=== PATIENT | male | born 1985 | race Caucasian/White ===

== ENCOUNTER → 2016-11-06 | Outpatient (CLI) | payer BC ==
--- NOTE | 2016-11-06 17:49 | DIAGNOSTIC IMAGING REPORT ---
L-SPINE FLEX/EXT BENDING MIN 6 CLINICAL HISTORY: M54.17 Lumbar back pain with radiculopathy affecting right lower COMPARISON STUDY: None FINDINGS: Normal study. No evidence for subluxation with patient in flexion or extension IMPRESSION: Normal study including flexion and extension views Electronically signed by: Jorge Marino M.D. 11/06/2016 5:47 PM Dictated Date/Time: 11/06/2016 5:45 PM
== END | disposition home or self-care (01) ==
LOC: C.RAD 17:13
PROVIDERS: ATTEND Internal Medicine
DX: M54.17 Radiculopathy, lumbosacral region (principal)

== ENCOUNTER → 2016-12-11 | Outpatient (CLI) | payer BC ==
[~2016-12-11] MED LIST: GADAVIST IV PRN
--- NOTE | 2016-12-11 11:02 | DIAGNOSTIC IMAGING REPORT ---
MRI LUMBAR SPINE COMBINATION CLINICAL HISTORY: Back pain with bilateral leg radiculopathy. TECHNIQUE: Sagittal and axial T1, T2 and STIR images were obtained. Imaging was performed before and after the administration of 8 cc of intravenous Gadavist COMPARISON STUDY: No previous studies for comparison. OBSERVATIONS: The vertebral bodies and posterior elements appear intact. There is no abnormal bony signal present to suggest a marrow replacement process. L1-2: No disc protrusions or extrusions. No evidence of spinal canal or neural foraminal compromise. L2-3: No disc protrusions or extrusions. No evidence of spinal canal or neural foraminal compromise. L3-4: No disc protrusions or extrusions. No evidence of spinal canal or neural foraminal compromise. L4-5: No disc protrusions or extrusions. No evidence of spinal canal or neural foraminal compromise. L5-S1: No disc protrusions or extrusions. No evidence of spinal canal or neural foraminal compromise. There is a intradural intramedullary mass involving the conus. There is a 12 mm intensely enhancing nodule at the superior L3 level. Immediately superior to this is either an associated syrinx or cystic component of the tumor which measures 40 x 13 x 12 mm. The findings are viewed as suspicious for an ependymoma. Other lesions to consider within the differential diagnosis include a hemangioblastoma and astrocytoma. IMPRESSION: Enhancing intradural mass, at the superior L3 level measuring 12 mm. This has an associated syrinx/cystic component measuring 40 x 13 x 12 mm. 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 Other lesions to include within the differential diagnosis include a hemangioblastoma and astrocytoma. Neurosurgical consultation is recommended. This report will be called. Electronically signed by: Aniceto Sequeira M.D. 12/11/2016 11:01 AM Dictated Date/Time: 12/11/2016 10:46 AM
== END | disposition home or self-care (01) ==
LOC: C.MRIBC 09:15
PROVIDERS: ATTEND Physical Medicine & Rehabilitation
DX: M54.16 Radiculopathy, lumbar region (principal); R22.2 Localized swelling, mass and lump, trunk

== ENCOUNTER 2022-01-28 20:07 | Observation (INO) ==
[2022-01-28] MEDS ORDERED: SODIUM CHLORIDE 0.9% 1000ML 1,000 ML IV STA (20:17)
--- NOTE | 2022-01-28 20:36 | Emergency Department Note ---
Impression & Plan Acute appendicitis, Abdominal pain, acute, right lower quadrant ED Provider Note NAME: GAVIN EATON AGE: 36 SEX: M : 1985 ARRIVES VIA: Walk-In INFORMANT: Patient, ED PROVIDER(S): Diomedes Thompson DO CHIEF COMPLAINT: Abdominal pain HPI: The patient is a 36-year-old male who presented to the emergency department for an evaluation of abdominal pain. The patient noticed abdominal pain yesterday which was initially periumbilical. He states he thought he was constipated. He had a few bowel movements which initially did improve the pain but ultimately the pain continued and now localized to his right lower quadrant. He is concerned he may have appendicitis. He has not been seen by provider prior to coming emergency department. He tried [id number]-[id number] medication with only minimal relief. Pain is worsened with bending forward as well as ambulation. Pain is also worsened with palpation over the abdomen. He denies having any testicular pain. He said no vomiting. The patient states he has no fever. ROS: See above HPI for pertinent positives & negatives. A total of 10 systems reviewed and were otherwise negative. PAST MEDICAL HISTORY: See Below PAST SURGICAL HISTORY: See Below FAMILY HISTORY: See Below SOCIAL HISTORY: See Below HOME MEDICATIONS: See Below ALLERGIES: See Below VITALS: See Below PHYSICAL EXAMINATION: GENERAL: Patient is awake alert in no acute distress patient is resting comfortably and showing no signs of anxiety EYES: The conjunctivae are clear. The pupils are round and reactive. EARS, NOSE, MOUTH AND THROAT: The nose is without any evidence of any deformity. Mucous membranes are moist. Tongue is midline. NECK: The neck is nontender and supple. RESPIRATORY: Normal respiratory effort is noted there is no evidence of wheezing rhonchi or rales CARDIOVASCULAR: Regular rate and rhythm noted there no murmurs rubs or gallops normal S1 normal S2. GASTROINTESTINAL: The abdomen was soft and mildly distended. There was right lower quadrant tenderness to palpation. There was mild guarding in the right lower quadrant. MUSCULOSKELETAL/EXTREMITIES: There is no evidence of gross deformity full range of motion is noted in the hips and shoulders. SKIN: There is no obvious evidence of any rash. There are no petechiae, pallor or cyanosis noted. NEUROLOGIC: Patient is awake alert and oriented x3. Gait was steady. MEDICAL DECISION MAKING: The patient is a 36-year-old male who presented to the emergency department for an evaluation of abdominal pain. The patient described diffuse abdominal pain which became localized in his right lower quadrant. I discussed patient's laboratory and radiographic studies with him. He did not want to have any pain medication. He was treated with IV fluids. On CT the patient appeared to have signs of appendicitis. This does fit with his overall presentation. I discussed patient's condition with the on-call general surgeon. They have agreed to evaluate the patient in the emergency department for further management and disposition. The patient was agreeable with this plan. Triage Nursing notes reviewed. Prior medical records reviewed Vital Signs: reviewed and remarkable for no significant abnormalities Differential diagnosis: Etiologies such as appendicitis, diverticulitis, obstruction, inflammatory bowel disease, renal colic, PUD, biliary pathology, pancreatitis, mesenteric ischemia, aortic pathology, infections, genitourinary, UTI, perforated viscus, as well as others were entertained. ER treatment provided: See below Diagnostics interpreted by me: ECG: none Cardiac Monitoring: An order was placed for continuous cardiac monitoring. The monitor shows a rate of 78 bpm with sinus rhythm. Laboratory studies: As stated above and show below. Imaging studies: See below Consultation(s): I discussed this case with Dr. Thorne Past Med/Surg History Medical History History of benign spinal cord tumor Surgical History H/O adenoidectomy Social History Smoking Status: Never smoker Feels Safe at Home: Yes Allergies Allergies Allergy/AdvReac Type Severity Reaction Status Date / Time Iodinated Contrast Media Allergy Intermediate Hives Verified 01/28/22 21:20 Sulfa (Sulfonamide Allergy Unknown QUESTIONABLE Verified 01/28/22 21:20 Antibiotics) ALLERGY fentanyl AdvReac Intermediate vomiting Verified 01/28/22 21:20 midazolam AdvReac Intermediate vomiting Verified 01/28/22 21:20 Home Meds Home Medications Medication Instructions Recorded Confirmed fluticasone propionate 50 2 spray INTRANASAL DAILY PRN 07/14/20 01/28/22 mcg/actuation nasal spray,suspension multivitamin 1 tab PO DAILY 07/14/20 01/28/22 triamcinolone acetonide 55 mcg 2 spray INTRANASAL DAILY PRN 01/28/22 01/28/22 nasal spray aerosol (Nasacort) Results & Data (ED) Vital Signs Vital Signs - 24 hr 01/28/22 20:09 Temperature 36.6 C Temperature Source Temporal Artery Scan Pulse Rate 78 Respiratory Rate 16 Respiratory Effort / Characteristics Non-Labored Spontaneous Respiratory Depth Normal Blood Pressure 123/75 Blood Pressure Mean 91 Blood Pressure Position Sitting Pulse Oximetry 96 Oxygen Delivery Method Room Air Sepsis Recent Fever Within 48 Hours No Sepsis New/Unexplained Change in Mental Status N/A Sepsis Action Taken by Nursing No Action Required Home Medications Current Medication List: was personally reviewed by me Laboratory Data Attestation: I reviewed the patient's lab results. Result diagrams: 01/28/22 20:24 01/28/22 20:24 Lab Results 01/28/22 01/28/22 01/28/22 Range/Units 20:24 20:24 20:27 WBC 4.11 L (4.8-10.8) K/uL RBC 5.07 (4.7-6.1) M/uL Hgb 14.5 (14.0-18.0) g/dL Hct 42.6 (42-52) % MCV 84.0 (80-100) fL MCH 28.6 (25-34) pg MCHC 34.0 (32-36) g/dL RDW Std Deviation 41.2 (36.4-46.3) fL RDW Coeff of Markos 13.7 (11.5-14.5) % Plt Count 238 (130-400) K/uL MPV 11.3 H (7.4-10.4) fL Immature Gran % (Auto) 0.0 % Neut % (Auto) 58.3 % Lymph % (Auto) 27.3 % Mcintosh % (Auto) 11.2 % Eos % (Auto) 2.7 % Baso % (Auto) 0.5 % Neut # (Auto) 2.40 (1.4-6.5) K/uL Lymph # (Auto) 1.12 L (1.2-3.4) K/uL Mcintosh # (Auto) 0.46 (0.11-0.59) K/uL Eos # (Auto) 0.11 (0-0.5) K/uL Baso # (Auto) 0.02 (0-0.2) K/uL Immature Gran # (Auto) 0.00 (0.00-0.02) K/uL Sodium 140 (136-145) mmol/L Potassium 3.4 L (3.5-5.1) mmol/L Chloride 104 (98-107) mmol/L Carbon Dioxide 28 (21-32) mmol/L Anion Gap 8 (3-11) BUN 19 (6-23) mg/dl Creatinine 1.03 (0.6-1.4) mg/dl Est Cr Clr Drug Dosing 116.2 ml/min Est GFR ( Amer) 106.3 ml/min Est GFR (Non-Af Amer) 91.7 ml/min BUN/Creatinine Ratio 18.4 (10-20) Glucose 82 (70-99(Fasting)) mg/dl Calcium 9.1 (8.5-10.1) mg/dl Total Bilirubin 0.5 (0.2-1.0) mg/dl AST 19 (13-39) U/L ALT 17 (7-52) U/L Alkaline Phosphatase 60 (34-104) U/L Total Protein 7.7 (6.0-8.3) gm/dl Albumin 4.7 (3.4-5.0) gm/dl Globulin 3.0 (2.5-4.0) gm/dl Albumin/Globulin Ratio 1.6 (0.9-2) Lipase 44 (11-82) U/L Urine Color Yellow Urine Appearance Clear (Clear) Urine pH 5.5 (4.5-7.5) Ur Specific [place] 1.030 (1.000-1.030) Urine Protein Negative (Negative) Urine Glucose (UA) Negative (Negative) Urine Ketones Trace H (Negative) Urine Blood Negative (Negative) Urine Nitrite Negative (Negative) Urine Bilirubin Negative (Negative) Urine Urobilinogen Negative (Negative) Ur Leukocyte Esterase Negative (Negative) Imaging Data Radiologist's Impression: Patient: GAVIN EATON (Male) : 81 Status: ER Date: 01/28/22 21:00 Room #: History: rlq pain Slices: [id number] Priors: Tech: Ryder Monzon @ [phone] Exams: CT ABDOMEN & PELVIS Without Contrast Contrast: Accession Numbers: [id number] Referring Physician: REFERRED SELF Preliminary Findings Only See Final Report For Complete Findings CT ABDOMEN & PELVIS Without Contrast: Periappendiceal fat stranding. Appendix measures up to 1.3 cm in thickness. Findings consistent with acute appendicitis. No evidence of perforation. No abscess. Radiologist: Larry Ware MD Study ready at 21:13 and initial results transmitted at 21:15 Discharge Plan Visit Data Chief Complaint: GI Assessment Stated Complaint: STOMACH PAIN, MOSLTY HURTS LOWER R ED Provider: Diomedes Thompson Discharge Problem: Acute appendicitis, Abdominal pain, acute, right lower quadrant Patient Disposition: Being Evaluated by Surgeon Forms Stand Alone Forms: [facility] Medical Prescriptions Prescriptions: No Action multivitamin Tablet 1 tab PO DAILY RF: 0 fluticasone propionate [Flonase] 50 mcg/actuation [place],Suspension 2 spray INTRANASAL DAILY PRN (Reason: Nasal Congestion) RF: 0 triamcinolone acetonide [Nasacort] 55 mcg Aerosol,[place] 2 spray INTRANASAL DAILY PRN (Reason: Nasal Congestion) RF: 0 Referrals Referrals: Diomedes Oates MD [Primary Care Provider] -
[2022-01-28 20:49] LABS: Basophils # (auto) 0.02 K/uL (0-0.2); Basophils % (auto) 0.5 %; Eosinophils # (auto) 0.11 K/uL (0-0.5); Eosinophils % (auto) 2.7 %; Hematocrit (blood only) 42.6 % (42-52); Hemoglobin 14.5 g/dL (14.0-18.0); Lymphocytes # (auto) 1.12 K/uL (1.2-3.4); Lymphocytes % (auto) 27.3 %; Mean Corpuscular Hemoglobin 28.6 pg (25-34); Mean Platelet Volume 11.3 fL (7.4-10.4); Monocytes # (auto) 0.46 K/uL (0.11-0.59); Monocytes % (auto) 11.2 %; Neutrophils % (auto) 58.3 %; Platelet Count 238 K/uL (130-400); RDW Coefficient of Variation 13.7 % (11.5-14.5); RDW Standard Deviation 41.2 fL (36.4-46.3); Red Blood Count 5.07 M/uL (4.7-6.1); White Blood Count 4.11 K/uL (4.8-10.8)
[2022-01-28 21:14] LABS: Albumin Globulin Ratio 1.6 (0.9-2); Albumin Level 4.7 gm/dl (3.4-5.0); BUN Creatinine Ratio 18.4 (10-20); Bilirubin,Total 0.5 mg/dl (0.2-1.0); Calcium 9.1 mg/dl (8.5-10.1); Creatinine Clr Calc Pharmacy 116.2 ml/min; Est GFR (African American) 106.3 ml/min; Est GFR (Non-African American) 91.7 ml/min; Potassium 3.4 mmol/L (3.5-5.1); Total Protein 7.7 gm/dl (6.0-8.3)
[2022-01-28] MEDS ORDERED: SODIUM CHLORIDE 0.9% 1000ML 1,000 ML IV ONE (21:43)
[2022-01-28 21:58] LABS: Appearance Urine Clear (Clear); Bilirubin Urine Negative (Negative); Blood Urine Negative (Negative); Color Urine Yellow; Glucose Urine UA Negative (Negative); Ketones Urine Trace (Negative); Leukocyte Esterase Urine Negative (Negative); Nitrite Urine Negative (Negative); Protein Urine Negative (Negative); Urobilinogen Urine Negative (Negative); pH Urine 5.5 (4.5-7.5)
--- NOTE | 2022-01-28 22:50 | Surgery Consultation ---
Date of Consultation January 28, 2022 Assessment & Plan (1) Acute appendicitis: pt is a 36 year-old male who presents to Er with one day history RLQ pain, IMP: acute appendicitis, plan, base on pt had full diner 3 hours ago, I recommend to admit pt to hospital, NPO, IV fluid, iv antibiotic, control pain, will do laparoscopic appendectomy possible open tomorrow morning, D/W benefits, risks and alternatives of the surgery, te risks - infection, bleeding, abscess, injury other organs, pt understood, he agrees with the surgery, he signed informed consent, I answered all questions, History of Present Illness Reason for Consultation: acute appendicitis, Requesting Physician: Dr. Diomedes Thompson History of Present Illness CHIEF COMPLAINT: Abdominal pain HPI: The patient is a 36-year-old male who presented to the emergency department for an evaluation of abdominal pain. The patient noticed abdominal pain yesterday which was initially periumbilical. He states he thought he was constipated. He had a few bowel movements which initially did improve the pain but ultimately the pain continued and now localized to his right lower quadrant. He is concerned he may have appendicitis. He has not been seen by provider prior to coming emergency department. He tried [id number] medication with only minimal relief. Pain is worsened with bending forward as well as ambulation. Pain is also worsened with palpation over the abdomen. He denies having any testicular pain. He said no vomiting. The patient states he has no fever. I ( Edgardo Thorne MD ) got a call for consult acute appendicitis, I reviewed pt's H/P, labs, CT scan with pt, pt had full diner at 7 PM, today, ROS: See above HPI for pertinent positives & negatives. A total of 10 systems reviewed and were otherwise negative. Allergies Allergy/AdvReac Type Severity Reaction Status Date / Time Iodinated Contrast Media Allergy Intermediate Hives Verified 01/28/22 21:20 Sulfa (Sulfonamide Allergy Unknown QUESTIONABLE Verified 01/28/22 21:20 Antibiotics) ALLERGY fentanyl AdvReac Intermediate vomiting Verified 01/28/22 21:20 midazolam AdvReac Intermediate vomiting Verified 01/28/22 21:20 Home Medications Medication Instructions Recorded Confirmed Type fluticasone propionate 50 2 spray INTRANASAL DAILY PRN 07/14/20 01/28/22 History mcg/actuation nasal spray,suspension multivitamin 1 tab PO DAILY 07/14/20 01/28/22 History triamcinolone acetonide 55 mcg 2 spray INTRANASAL DAILY PRN 01/28/22 01/28/22 History nasal spray aerosol (Nasacort) Patient History Medical History History of benign spinal cord tumor Surgical History H/O adenoidectomy Social History Smoking Status: Never smoker Feels Safe at Home: Yes Review of Systems Constitutional: as per Subjective / HPI Eyes: as per Subjective / HPI Respiratory: chronic sinusitis Cardiovascular: as per Subjective / HPI Gastrointestinal: as per Subjective / HPI Genitourinary: + as per Subjective / HPI Neurologic: as per Subjective / HPI Psychiatric: as per Subjective / HPI Endocrine: as per Subjective / HPI Hematologic / Lymphatic: as per Subjective / HPI Physical Exam Constitutional: WD/WN, vitals as above no distress, Eyes: PERRL, conjunctivae normal, anicteric sclerae Neck: trachea midline, no thyromegaly Respiratory: normal respiratory effort, lungs clear to auscultation Cardiovascular: RRR, no murmur, no edema Gastrointestinal (Abdomen): soft, mild tenderness at RLQ, no rebound pain, no distend, BS +. Musculoskeletal: no cyanosis or clubbing, extremities motor strength 5/5 Neurologic: patellar DTR's 2+ bilat, sensation intact Psychiatric: A+Ox3, euthymic affect Results & Data ([facility]) Vital Signs (Past 12 Hours) Vital Signs Temp Pulse Pulse Resp BP BP Pulse Ox 01/28/22 22:10 70 20 137/76 98 01/28/22 22:06 66 10 L 97 01/28/22 20:09 36.6 C 78 16 123/75 96 Laboratory Results Abnormal Labs 01/28/22 01/28/22 01/28/22 20:24 20:24 20:27 WBC 4.11 L MPV 11.3 H Lymph # (Auto) 1.12 L Potassium 3.4 L Urine Ketones Trace H Diagnostic Findings CT scan- acute appendicitis, I reviewed it, (1) Acute appendicitis Acute appendicitis type: unspecified acute appendicitis type Qualified Code(s): K35.80 - Unspecified acute appendicitis
[2022-01-28] MEDS ORDERED: FLUTICASONE PROPIONATE NA SPR 16 GM BTL PRN (23:43)
[2022-01-28] MEDS ORDERED: HYDROmorphone INJ 0.5 MG/0.5 ML SYR IV PRN ×2 (23:43)
[2022-01-28] MEDS ORDERED: TRIAMCINOLONE ACET NASAL SPRAY 10.8ML BTL PRN (23:43)
[2022-01-29] MEDS ORDERED: PIPERACILLIN/TAZOBACTAM 3.375 GM in DEXTROSE 5% 100 ML IV ONE (00:30)
[2022-01-29] MEDS: D5W AND 1/2NSS + 20MEQ KCL 20 MEQ/1,000 ML BAG IV SCH ×3 (01:45→15:20)
[2022-01-29] MEDS ORDERED: PIPERACILLIN/TAZOBACTAM 3.375 GM in DEXTROSE 5% 100 ML IV SCH (06:00)
[2022-01-29 06:33] LABS: Basophils # (auto) 0.01 K/uL (0-0.2); Basophils % (auto) 0.3 %; Eosinophils % (auto) 2.6 %; Hematocrit (blood only) 41.5 % (42-52); Hemoglobin 13.8 g/dL (14.0-18.0); Immature Granulocytes # (auto) 0.01 K/uL (0.00-0.02); Immature Granulocytes % (auto) 0.3 %; Lymphocytes # (auto) 1.34 K/uL (1.2-3.4); Lymphocytes % (auto) 34.4 %; Mean Corpuscular Hemoglobin 28.4 pg (25-34); Mean Corpuscular Hgb Conc 33.3 g/dL (32-36); Mean Corpuscular Volume 85.4 fL (80-100); Mean Platelet Volume 11.3 fL (7.4-10.4); Monocytes # (auto) 0.38 K/uL (0.11-0.59); Monocytes % (auto) 9.7 %; Neutrophils # (auto) 2.06 K/uL (1.4-6.5); Neutrophils % (auto) 52.7 %; Platelet Count 212 K/uL (130-400); RDW Standard Deviation 43.7 fL (36.4-46.3); Red Blood Count 4.86 M/uL (4.7-6.1)
[2022-01-29] MEDS ORDERED: HYDROmorphone INJ 1 MG/ML SYRINGE ONE (06:42)
[2022-01-29] MEDS ORDERED: PROPOFOL IV EMULSION 10 MG/ML 20 ML VIAL IV ONE (06:42)
[2022-01-29] MEDS ORDERED: ONDANSETRON INJ 2 MG/ML 2 ML VIAL ONE (06:42)
[2022-01-29] MEDS ORDERED: DEXAMETHASONE SOD INJ 4 MG/ML VIAL ONE ×3 (06:42→07:35)
[2022-01-29] MEDS ORDERED: LIDOCAINE 2% 2 ML VIAL/AMP(20MG/ML) INFIL ONE (06:42)
[2022-01-29] MEDS ORDERED: BACITRACIN OINT 15 GM TUBE ONE (06:53)
[2022-01-29] MEDS ORDERED: LIDOCAINE 1% LOCAL 20 ML VIAL ONE (06:53)
[2022-01-29] MEDS ORDERED: BUPIVACAINE 0.5 % 5 MG/1 ML MPF 30ML VIAL ONE (06:53)
--- NOTE | 2022-01-29 06:59 | Anesthesiology Consultation ---
Date of Service January 29, 2022 Assessment & Plan Chart Review Chart Review: Acceptable Risk for Surgery and Patient NOT seen in Pre Admission Testing Consults Requested none ASA ASA2E Proposed Anesthesia Anesthesia Type: General Additional Comments: covid test neg. History Surgery Operation Date: 01/29/22 08:40 Proposed Procedures p Laparoscopic Appendectomy - Edgardo Thorne MD Height/Weight Height: 5 ft 11 in Weight: 99.2 kg Allergies Allergy/AdvReac Type Severity Reaction Status Date / Time Iodinated Contrast Media Allergy Intermediate Hives Verified 01/28/22 21:20 Sulfa (Sulfonamide Allergy Unknown QUESTIONABLE Verified 01/28/22 21:20 Antibiotics) ALLERGY fentanyl AdvReac Intermediate vomiting Verified 01/28/22 21:20 midazolam AdvReac Intermediate vomiting Verified 01/28/22 21:20 Medications Home Medications Medication Instructions Recorded Confirmed Last Taken fluticasone propionate 50 2 spray INTRANASAL DAILY PRN 07/14/20 01/28/22 07/14/20 mcg/actuation nasal spray,suspension multivitamin 1 tab PO DAILY 07/14/20 01/28/22 01/28/22 triamcinolone acetonide 55 mcg 2 spray INTRANASAL DAILY PRN 01/28/22 01/28/22 Unknown nasal spray aerosol (Nasacort) Active Medications Generic Name Dose Route Start Last Admin Trade Name Freq PRN Reason Stop Dose Admin Potassium Chloride/Dextrose/Sod Cl 20 meq in 1,000 mls @ 100 mls/hr 01/28/22 23:43 01/29/22 01:45 D5w And 1/2nss + 20meq Kcl IV 02/27/22 23:42 100 mls/hr .Q10H AAYUSH Administration Protocol Piperacillin Sod/Tazobactam 115 mls @ 28.75 mls/hr 01/29/22 06:00 01/29/22 05:58 Sod 3.375 gm/ Dextrose IV 02/08/22 05:59 28.8 mls/hr Q8H AAYUSH Administration Protocol Past Medical History Medical History History of benign spinal cord tumor Exercise / Class Metabolic Activity II 4-5 Yardwork/Stairs/Walk up hill Past Surgical History Surgical History H/O adenoidectomy Past Anesthesia History No Hx of Anesthesia Complications and No Family Hx of Anesthesia Complications History of PONV No Hx of PONV and No Hx of Motion Sickness Social History Smoking Status: Never smoker Hx Alcohol Use: No Hx Substance Use: No Physical Exam Vital Signs Last Vital Signs Temp 36.7 C 01/29/22 06:45 Pulse 79 01/29/22 06:45 Resp 16 01/29/22 06:45 BP 125/75 01/29/22 06:45 Pulse Ox 98 01/29/22 06:45 Testing Laboratory Results 01/29/22 06:16 01/28/22 20:24 Urine Color Yellow 01/28/22 20:27 Urine Appearance Clear (Clear) 01/28/22 20:27 Urine pH 5.5 (4.5-7.5) 01/28/22 20:27 Ur Specific [place] 1.030 (1.000-1.030) 01/28/22 20:27 Urine Protein Negative (Negative) 01/28/22 20:27 Urine Glucose (UA) Negative (Negative) 01/28/22 20:27 Urine Ketones Trace (Negative) H 01/28/22 20:27 Urine Nitrite Negative (Negative) 01/28/22 20:27 Ur Leukocyte Esterase Negative (Negative) 01/28/22 20:27 Electrocardiogram Date: 07/14/20 Findings: + NSR @ (@ 81) Chest X-Ray Date: 07/14/20 Findings: + NAD
--- NOTE | 2022-01-29 07:02 | History & Physical Bridge Note ---
Date of Service January 29, 2022 History & Physical Bridge Note I have examined the patient, reviewed the History & Physical and in the interval since the performance of the History & Physical I have noted the following changes of clinical significance: no changes noted
[2022-01-29] MEDS ORDERED: ceFAZolin 2,000 MG/15 ML IV PUSH IV ONE (07:06)
[2022-01-29] MEDS ORDERED: cefOXitin 2,000 MG in DEXTROSE 5% 50 ML IV STA (07:07)
[2022-01-29] MEDS ORDERED: diphenhydrAMINE 50 MG/ML VIAL ONE (07:35)
[2022-01-29] MEDS ORDERED: SUCCINYLCHOLINE 100MG/5ML SYR IV ONE (07:40)
[2022-01-29] MEDS ORDERED: ROCURONIUM BROMIDE 10 MG/ML 5 ML VIAL IV ONE (07:41)
[2022-01-29] MEDS ORDERED: ONDANSETRON INJ 2 MG/ML 2 ML VIAL IV PRN ×2 (07:58→09:26)
[2022-01-29] MEDS ORDERED: ATROPINE SULFATE 0.1 MG/ML 10ML SYR IV PRN (07:58)
[2022-01-29] MEDS ORDERED: FLUMAZENIL 0.1 MG/1 ML 10 ML VIAL IV PRN (07:58)
[2022-01-29] MEDS ORDERED: HYDROmorphone INJ 1 MG/ML SYRINGE IV PRN (07:58)
[2022-01-29] MEDS ORDERED: LABETALOL HCL IV 5 MG/ML 20ML IV PRN (07:58)
[2022-01-29] MEDS ORDERED: ePHEDrine sulfate 50 MG/ML AMP IV PRN (07:58)
[2022-01-29] MEDS ORDERED: NALOXONE HCL 0.4 MG/1 ML VIAL/CARP IV PRN (07:58)
[2022-01-29] MEDS ORDERED: PROMETHAZINE HCL 12.5 MG in SODIUM CHLORIDE 0.9% 50 ML IV PRN (07:58)
[2022-01-29] MEDS ORDERED: KETOROLAC 30 MG/ML VIAL ONE (08:14)
[2022-01-29] MEDS ORDERED: GLYCOPYRROLATE 0.2 MG/ML VIAL ONE (08:15)
[2022-01-29] MEDS ORDERED: NEOSTIGMINE METHYLSULFATE 1 MG/ML 10ML VIAL ONE (08:15)
--- NOTE | 2022-01-29 08:20 | Post Operative Brief Note ---
Immediate Post Op Note v1 Date of Surgery January 29, 2022 Pre & Post Diagnosis Operation Date: 01/29/22 08:40 Pre-Op Diagnosis: VOMITING,LOWER ABDOMINAL PAIN, acute appendicitis Post-Op Diagnosis: VOMITING,LOWER ABDOMINAL PAIN, acute appendicitis I identified the patient and participated in the time-out.: Yes Procedure Operation Date: 01/29/22 08:40 Actual Procedures p Laparoscopic Appendectomy(Not Applicable) - Edgardo Thorne MD Surgeon Edgardo Thorne MD Tax Advisor JAMES Chapman Estimated Blood Loss 10 Findings Consistent with Post-Op Diagnosis Fluids 600ml Specimens appendix Anesthesia Type General Complications none Disposition Accompanied Patient To Recovery: Yes
[2022-01-29] MEDS ORDERED: MULTIVITAMIN TAB PO SCH (09:00)
[2022-01-29] MEDS ORDERED: oxyCODONE/ACETAMINOPHEN 5mg/325mg TAB PO PRN (09:26)
[2022-01-29] MEDS ORDERED: ACETAMINOPHEN 325 MG TAB PO PRN (09:26)
--- NOTE | 2022-01-29 09:40 | Anesthesiology Progress Note ---
Date of Service January 29, 2022 Anesthesia Post Procedure Vital Signs Vital Signs: Temp Pulse Pulse Pulse Resp BP BP 01/29/22 09:30 36.5 C 56 L 12 124/75 01/29/22 09:20 36.8 C 69 20 127/69 01/29/22 09:10 54 L 15 127/65 01/29/22 09:00 61 20 134/69 01/29/22 08:50 67 17 121/70 01/29/22 08:43 36.1 C L 76 24 119/80 01/29/22 07:02 36.7 C 75 20 01/29/22 06:45 36.7 C 79 16 01/28/22 23:35 36.4 C L 69 16 01/28/22 23:12 62 01/28/22 22:10 70 20 01/28/22 22:06 66 10 L 01/28/22 20:09 36.6 C 78 16 123/75 BP Pulse Ox 01/29/22 09:30 96 01/29/22 09:20 98 01/29/22 09:10 97 01/29/22 09:00 100 01/29/22 08:50 100 01/29/22 08:43 99 01/29/22 07:02 136/83 98 01/29/22 06:45 125/75 98 01/28/22 23:35 133/79 96 01/28/22 23:12 114/78 97 01/28/22 22:10 137/76 98 01/28/22 22:06 97 01/28/22 20:09 96 Pain Intensity Abdomen: Pain Intensity: 3 Transfer of Care Handoff Completed per policy Notes Mental Status: alert / awake / arousable Patient Amnestic to Procedure: Yes Nausea / Vomiting: adequately controlled Pain: adequately controlled Airway Patency, RR, SpO2: stable & adequate BP & HR: stable & adequate Hydration State: stable & adequate Anesthetic Complications: no major complications apparent
--- NOTE | 2022-01-29 09:54 | Operative Report (OR) ---
PREOPERATIVE DIAGNOSIS: Acute appendicitis. POSTOPERATIVE DIAGNOSIS: Acute appendicitis. OPERATION: Laparoscopic appendectomy. SURGEON: Edgardo Thorne MD. RESEARCH ASSOCIATE MOLECULAR BIOLOGY: Adalgisa Menard PA-C. ANESTHESIA: General. ESTIMATED BLOOD LOSS: About 10 mL. FINDINGS: Acute appendicitis. COMPLICATIONS: None. INDICATIONS FOR THE PROCEDURE: This is a 36-year-old gentleman who was admitted to the hospital for acute appendicitis. I recommended to do laparoscopic appendectomy, possible open. I did talk to the patient about the benefit, risk, alternate procedure. I indicated the risks may include, but not li mited to, such as bleeding, infection, injury to other organs, incisional hernia, bowel obstruction, abscess. The patient understands. He signed informed consent and I answered all questions. DETAILS OF PROCEDURE: After we identified the patient and verified the procedure, we brought the pat ient to the OR, put the patient in the supine position on the OR table. The patient received SCD on bilateral legs to prevent DVT. Also, patient received 2 grams cefoxitin IV for prophylactic antibiot ic. The patient received general anesthesia without difficulty. Also, patient received a Ontiveros cath eter insertion. The abdomen was prepped and draped in routine sterile fashion. After timeout, I inj ected the local anesthesia by using 1% lidocaine mixed with 0.5% Marcaine just above the umbilicus, t hen I made a small incision just above umbilicus, opened fascia, opened peritoneum. Under direct vis ion, put a Munira trocar in, connected to CO2 to create pneumoperitoneum, flow rate at 6 liters per m inute, pressure not more than 14 mmHg. Once we got a nice pneumoperitoneum, we put a camera in, looked around the abdomen, it shows a normal finding on the small bowel and large bowel; however, appendix shows an enlarged with inflammation, c onfirmed diagnosis of acute appendicitis. Then, we put another two 5 mm trocars on the left lower qu adrant area. Once all trocars in, we used the grasper to hold the appendix, used the Harmonic scalpe l to take down the appendiceal, rechecked, no active bleeding. Then, we used a 45 mm Endo-NATALIA staple r for transection on the base of appendix, rechecked the staple line, intact and no leak, no active b leeding. Then, we removed the appendix through the catch bag. Then, we reinserted the Munira trocar in, connected to CO2 to create pneumoperitoneum, again looked a round the abdomen, no active bleeding, no leaking from staple line. Then, we removed all trocars und er direct vision. No active bleeding from the trocar sites. Pneumoperitoneum was released, then I c losed the umbilical incision fascial layer by using 0 Vicryl [id number] x2, closed subcutaneous layer by using 2-0 Vicryl interruptedly, closed skin by using 4-0 Vicryl continuous running, closed a nother two 5 mm trocar site of skin only by using 4-0 Vicryl. Then, we put the dressing on. The pat ient tolerated the procedure well. All instrument, needle and sponge counts were correct x2 at the e nd of the case. The Ontiveros catheter was removed after the procedure, and the patient was transferred to recovery room in stable condition. After the procedure, I did talk to the patient and the patient 's family member about the OR finding and the procedure we did, they understand. The trust operations assistant, Adalgisa, was necessary for this procedure. Her role was to hold the camera, exp osure and retraction. Job ID: [id number]
--- NOTE | 2022-01-29 10:11 | CT Scan Report ---
CT abd pelvis wo con CLINICAL HISTORY: RLQ pain TECHNIQUE: Helical axial images of the abdomen and pelvis were obtained. Automated dose lowering tech niques and/or adjustment according to patient size were utilized for this exam. This exam was perfor med without intravenous contrast. CT DOSE: 658.59 mGy.cm COMPARISON: Comparison is made to CT abdomen pelvis 01/20/2012 FINDINGS: Lower chest: No acute abnormality Liver: Unremarkable. No focal lesions are seen. Gallbladder and biliary tree: The gallbladder is contracted. No intra- or extrahepatic biliary ductal dilation. Pancreas: Unremarkable, no focal lesions. Spleen: Unremarkable. Adrenals: Unremarkable. Kidneys and ureters: Unremarkable. Bladder: Limited evaluation due to underdistention. Reproductive organs: Unremarkable. Bowel: The appendix measures 10 mm in diameter with surrounding fat stranding. And adjacent soft tiss ue nodule is favored to represent a lymph node. No evidence of perforation or abscess formation is se en. Lymph nodes Retroperitoneal: Unremarkable. Mesenteric: Unremarkable. Pelvic: Unremarkable. Peritoneum: Mild fat stranding in the right lower quadrant a small amount of fluid is noted in the pe lvis. Vessels: Unremarkable. Abdominal wall: Unremarkable. Bones: Unremarkable. IMPRESSION: Findings are compatible with acute appendicitis without evidence of rupture or abscess formation. ACT 112: Negative or not required by law. Electronically signed by: Wong Lazo M.D. 01/29/2022 10:09 AM
[2022-01-29] MEDS ORDERED: PANTOprazole 40 MG in SYRINGE 0 ML IV SCH (11:00)
--- NOTE | 2022-01-31 11:27 | Discharge Summary ---
Date of Service January 31, 2022 Admission HPI Per Admitting Provider The patient is a 36-year-old male who presented to the emergency department for an evaluation of abdominal pain. The patient noticed abdominal pain yesterday which was initially periumbilical. He states he thought he was constipated. He had a few bowel movements which initially did improve the pain but ultimately the pain continued and now localized to his right lower quadrant. He is concerned he may have appendicitis. He has not been seen by provider prior to coming emergency department. He tried [id number] medication with only minimal relief. Pain is worsened with bending forward as well as ambulation. Pain is also worsened with palpation over the abdomen. He denies having any testicular pain. He said no vomiting. The patient states he has no fever. I ( Edgardo Thorne MD ) got a call for consult acute appendicitis, I reviewed pt's H/P, labs, CT scan with pt, pt had full diner at 7 PM, today, Principal Diagnosis Acute appendicitis Discharge Data Allergies Allergy/AdvReac Type Severity Reaction Status Date / Time Iodinated Contrast Media Allergy Intermediate Hives Verified 01/28/22 21:20 Sulfa (Sulfonamide Allergy Unknown QUESTIONABLE Verified 01/28/22 21:20 Antibiotics) ALLERGY fentanyl AdvReac Intermediate vomiting Verified 01/28/22 21:20 midazolam AdvReac Intermediate vomiting Verified 01/28/22 21:20 Consultations 01/28/22 21:45 Consult General Surgery Stat Procedures Performed Operation Date: 01/29/22 08:40 Actual Procedures p Laparoscopic Appendectomy(Not Applicable) - Edgardo Thorne MD Ordered Studies 01/28/22 20:17 CT abd pelvis wo con Urgent Hospital Course (1) Acute appendicitis: Patient was admitted to hospital from emergency room overnight for acute appendicitis and scheduled for OR the next morning. He was kept npo. Patient was taken to operating room for laparoscopic appendectomy by Dr. Thorne. Patient was found to have acute appendicitis without perforation or abscess. Patient tolerated procedure well and was transferred to recovery then to medical/surgical floor for postop care. Diet was advanced as tolerated. IV fluids , IV and PO pain medication as needed, activity as tolerated, SCDs , incentive spirometry ordered. He was evaluated in the afternoon on POD # 0. He was having some urinary retention but able to void on his own and did not require a straight cath. Diet was advanced to reg diet for dinner. He was advised to ambulate hallway. He tolerated dinner and was again able to void on his own and was discharged home after dinner on POD # 0 in stable condition. Total Time Total Time Spent Total Time Spent (In Minutes): 30 minutes Discharge Plan Discharge Items Patient Disposition: Home - Self-Care Reason For Visit: VOMITING,LOWER ABDOMINAL PAIN Discharge Diagnosis: Acute Appendicitis Activity: Per Instructions section Non-emergency contact: Primary Care Provider and Surgeon Call non-emergency contact if: you have any medication questions, your pain is not controlled, your pain is worsening, your pain is concerning for you, you have a fever, your temperature is above 101, your wound has increased redness, your wound has increased drainage and your wound pain has increased Follow-up/Referrals: ProDiomedes MD [Primary Care Provider] - Diet: Regular Addtl Attending Provider Instructions: Post-Surgical ~Discharge Instructions Activity Recommendations: - lifting limitation: (20 pounds for 4 weeks), - exercise/sex/sports limit: (nonstrenuous for 2 weeks), - driving or machine use limit: (none for 1 week or until pain free and no longer taking narcotic pain medication), - Shower/bathe limit: (november shower beginning Friday) Diet: - Resume previous diet SPECIAL CARE INSTRUCTIONS: - May shower on Friday. Sponge bath and wash hair in meantime. On Friday, remove outer dressings and let water run over area and pat dry. - Leave steri strips on for one week and then remove. - Call the surgeon's office with any questions or concerns - - (ex. temperature higher than 101 degrees F, excessive bleeding or pain). MEDICATIONS: - Resume previous medications unless instructed otherwise by your surgeon. - May take extra strength Tylenol and Ibuprofen as needed for mild pain -650 mg Tylenol every 6 hours as needed - Ibuprofen 600 mg every 6 hours as needed (take with food) - Percocet 1 every 6 hours, as needed for moderate to severe pain - Recommend daily stool softener (Colace) while taking narcotic pain medication to prevent constipation or straining. FOLLOW UP VISIT: - If not already scheduled, please call the office to schedule a two week follow-up appointment. Office number Pending Studies at Discharge: Yes (pathology, will be reviewed at follow-up visit) Stand-Alone Forms: My [facility], Opioid Pain Management, Smoking Cessation Medications and DC Order Prescriptions: New oxycodone-acetaminophen 5-325 mg tablet 1 tab PO Q6H PRN (Reason: pain) Qty: 12 RF: 0 Continued multivitamin Tablet 1 tab PO DAILY RF: 0 fluticasone propionate 50 mcg/actuation [place],Suspension 2 spray INTRANASAL DAILY PRN (Reason: Nasal Congestion) RF: 0 triamcinolone acetonide [Nasacort] 55 mcg Aerosol,[place]ola 2 spray INTRANASAL DAILY PRN (Reason: Nasal Congestion) RF: 0 Discharge Orders: Discharge Order (Routine); Ordered 01/29/22 Ordered By: Adalgisa Sumner/Other Patient Handouts: DVT Post Op Prevention, Appendectomy, What Is Appendicitis? Admission Data Admit Date/Time: 01/28/22 23:00 Attending Provider: Edgardo Thorne Admit Provider: Edgardo Thorne Primary Care Provider: Diomedes Oates Other Providers: Edgardo Thorne Other Interventions: Discharge Summary Assessment (RN) Last Done: 01/29/22 19:21
== END 2022-01-29 19:21 | disposition home or self-care (01) | DRG 343 ==
LOC: ED 20:07 → INTOOBSV 23:00 → 3W 23:00